=== PATIENT | female | born 1935 | race Two or more races ===

== ENCOUNTER 2019-01-10 16:05 | Emergency (ER) | payer MEDICARE, MEDICAID ==
[~2019-01-10] VITALS: Ht 162.6 cm; Wt 97.1 kg
[2019-01-10 16:09] VITALS: Ht 162.6 cm; Wt 97.1 kg
[2019-01-10 17:24] LABS: BASOPHIL % 0.3 % (0-2); PLATELET COUNT 149 x10^3mcL (130-400)
[2019-01-10 17:25] LABS: RED CELL DISTRIBUTION WIDTH 15.3 % (11.5-14.5)
[2019-01-10 17:35] LABS: CALCIUM 8.3 mg/dL (8.5-10.1); CARBON DIOXIDE 29.2 mmol/L (21-32); CHLORIDE SERUM 106 mmol/L (98-107); CREATININE SERUM 1.5 mg/dL (0.6-1.0); GLUCOSE SERUM 224 mg/dL (74-106); POTASSIUM SERUM 4.6 mmol/L (3.5-5.1); SODIUM SERUM 141 mmol/L (136-145)
[2019-01-10 17:39] LABS: ALKALINE PHOSPHATASE 104 U/L (46-116); ALT/SGPT 27 U/L (14-59); AST/SGOT 19 U/L (15-37); BILIRUBIN TOTAL 0.4 mg/dL (0.20-1.00); TOTAL PROTEIN, SERUM 6.6 g/dL (6.4-8.2)
[2019-01-10 17:40] LABS: ALBUMIN 2.8 g/dL (3.4-5.0)
[2019-01-10 18:30] VITALS: BP 140/63
== END 2019-01-10 20:16 | disposition short-term general hospital (02) ==
LOC: ED 16:05
PROVIDERS: Student in an Organized Health Care Education/Training Program
DX: G45.9 Transient cerebral ischemic attack, unspecified (principal); I10 Essential (primary) hypertension; E11.9 Type 2 diabetes mellitus without complications; M19.90 Unspecified osteoarthritis, unspecified site; Z98.890 Other specified postprocedural states
CPT/HCPCS: 36415; 83880; Q0092